=== PATIENT | male | born 1970 | race Hispanic/Latino ===

== ENCOUNTER 2018-08-12 23:58 | Emergency (ER) | payer BC ==
[2018-08-13] MEDS ORDERED: CLINDAMYCIN HCL 150 MG CAP ONE (01:48)
== END 2018-08-13 01:58 | disposition home or self-care (01) ==
LOC: EDH 23:58
DX: M71.561 Other bursitis, not elsewhere classified, right knee (principal); Z98.890 Other specified postprocedural states; Z91.013 Allergy to seafood